=== PATIENT | female | born 1990 | race Caucasian/White ===

== ENCOUNTER 2018-12-13 14:15 | Inpatient (IN) | payer OTHER ==
[2018-12-13] MEDS ORDERED: PROMETHAZINE HCL 25 MG/1 ML VIAL IVPUSH ONE (15:07)
[2018-12-13] MEDS ORDERED: BUTORPHANOL TARTRATE 1 MG/ML VIAL IVPB ONE (15:07)
[2018-12-13] MEDS ORDERED: DINOPROSTONE 10 MG VAGINAL SUPPOSITORY VG ONE (15:10)
[2018-12-13 15:19] VITALS: BMI 32.5
--- NOTE | 2018-12-13 15:45 | HP ---
Past Medical History - Admission History Source: Patient Limitations to Obtaining History: No Limitations - Past Medical History ...: 1 ...Para: 0 ...Term: 0 ...: 0 ...Spon : 0 ...Induced : 0 ...Multiple Gestation: 0 ...EDC by Joseo: 12/06/18 - Smoking History Smoking history: Never smoked Have you smoked in the past 12 months: No - Alcohol/Substance Use Hx Alcohol Use: No Home Medications - Allergies Allergies/Adverse Reactions: Allergies Allergy/AdvReac Type Severity Reaction Status Date / Time No Known Allergies Allergy Verified 12/13/18 15:11 - Home Medications Home Medications: Ambulatory Orders Vits96/Iron Fum/Folic [ Tablet] 1 tab PO DAILY 12/03/18 Review of Systems - Review of Systems Constitutional: reports: No Symptoms Eyes: reports: No Symptoms HENT: reports: No Symptoms Neck: reports: No Symptoms Cardiovascular: reports: No Symptoms Respiratory: reports: No Symptoms Gastrointestinal: reports: No Symptoms Genitourinary: reports: No Symptoms Breasts: reports: No Symptoms Reported Musculoskeletal: reports: No Symptoms Integumentary: reports: No Symptoms Neurological: reports: No Symptoms Endocrine: reports: No Symptoms Hematology/Lymphatic: reports: No Symptoms Psychiatric: reports: No Symptoms Physical Exam - Maternity Vital Signs: Vital Signs Temperature 98.1 F 12/13/18 15:15 Pulse Rate 103 H 12/13/18 15:15 Respiratory Rate 20 12/13/18 15:15 Blood Pressure 111/69 12/13/18 15:15 O2 Sat by Pulse Oximetry (%) Constitutional: Yes: Well Nourished, No Distress Neck: Yes: WNL Cardiovascular: Yes: WNL Breast(s): Yes: WNL - Abdominal Exam/OB Fundal Height: 41 Number of Fetuses: Single Presentation: Vertex Contractions: No Category: I - Vaginal Exam/OB Amniotic Membrane Status: Intact - Physical Exam Musculoskeletal: Yes: WNL Extremities: Yes: WNL Integumentary: Yes: WNL Psychiatric: Yes: WNL, Alert, Oriented Hemorrhage Risk Assessment - Risk Factors Risk Score: 0 Risk Level: Low Risk Problem List - Problems (1) Post term Code(s): O48.0 - POST-TERM Qualifiers: Post-term type: 40-42 weeks gestation Qualified Code(s): O48.0 - Post-term Assessment/Plan post term 41 week plan Cervidil
[2018-12-13] MEDS: DEXTROSE 5%-LACTATED RINGERS 1,000 ML IV SCH ×2 (15:49→21:52)
--- NOTE | 2018-12-13 16:21 | PN ---
Progress Note (short form) - Note Progress Note: 12/13/18 at 16.10 hr 28 yrs , edc 12/06/18 cervidil inserted in vagina , as per Dr Lima's order. cx close, post, unefface, Mi Vx -3/-4 fhr 145 cat-1 irregular mild uc pt unaware Selected Entries 12/13/18 15:15 Temperature 98.1 F Pulse Rate 103 H Blood Pressure 111/69
[2018-12-13 16:31] LABS: BASO % 0.1 % (0-2.0); EOS % 0.5 % (0-4.5); HEMATOCRIT 37.8 % (32.4-45.2); HEMOGLOBIN 13.2 GM/dL (10.7-15.3); LYMPH % 36.2 % (8-40); MCH 30.1 pg (25.7-33.7); MEAN PLT VOLUME 8.4 fl (7.5-11.1); MONO % 6.9 % (3.8-10.2); NEUT % 56.3 % (42.8-82.8); PLATELET COUNT 272 K/MM3 (134-434); RBC 4.39 M/mm3 (3.60-5.2); RDW 13.9 % (11.6-15.6); WHITE BLOOD COUNT 5.8 K/mm3 (4.0-10.0)
[2018-12-13 16:42] LABS: INR 0.96 (0.83-1.09); PROTHROMBIN TIME (PATIENT) 11.3 SEC (9.7-13.0)
[2018-12-13 16:45] LABS: ACTIVATED PTT 25.4 SECONDS (25.2-36.5)
[2018-12-13 16:50] LABS: ANION GAP 7 MMOL/L (8-16); BLOOD UREA NITROGEN 5 mg/dL (7-18); CALCIUM 8.6 mg/dL (8.5-10.1); CHLORIDE 106 mmol/L (98-107); CO2 23 mmol/L (21-32); CREATININE 0.6 mg/dL (0.55-1.3); GLUCOSE,RANDOM 128 mg/dL (74-106); SODIUM 136 mmol/L (136-145)
[2018-12-14] MEDS: DEXTROSE 5%-LACTATED RINGERS 1,000 ML IV SCH (05:44)
[2018-12-14] MEDS ORDERED: ELECTROLYTE-148 SOLN 500 ML IV ONE (08:30)
[2018-12-14] MEDS ORDERED: CITRIC ACID/SODIUM CITRATE 30 ML UNIT-DOSE CUP PO ONE (08:30)
--- NOTE | 2018-12-14 08:35 | PN ---
Ante-Partal Exam - Subjective Subjective: Pt desires CS does not want another cervidil Vital Signs: Vital Signs Temperature 98.1 F 12/14/18 08:00 Pulse Rate 89 12/14/18 08:00 Respiratory Rate 18 12/14/18 08:00 Blood Pressure 112/77 12/14/18 08:00 O2 Sat by Pulse Oximetry (%) Bleeding: No Right upper quadrant pain: Yes - Contractions Contractions: Yes Regularity: Regular Intensity: Mild/Mod Monitor Mode: External - Exam during Labor Heart Rate: 130 Variability: Moderate Category: I Monitor Accelerations: Present Monitor Decelerations: None Exam: Vaginal Dilatation (cm): closed Effacement (%): long Amniotic Membrane Status: Intact Presentation: Vertex - Intrapartum Hemorrhage Risk Risk Score: 0 Risk Level: Low Risk - Assessment/Plan Assessment/Plan: failed induction Inadequate pelvis desires CS IUP at 41.1 week Cat 1 Plan Primary Section
[2018-12-14] MEDS: ELECTROLYTE-148 SOLN 1,000 ML IV SCH (09:00)
[2018-12-14] MEDS ORDERED: morphine SULFATE/Preservative Free 0.5 MG/ML (1cc Syringe) ONE (09:07)
[2018-12-14] MEDS ORDERED: PROPOFOL 20 ML ONE (09:08)
[2018-12-14] MEDS ORDERED: ePHEDrine SULFATE 50 MG/1 ML AMPULE ONE (09:08)
[2018-12-14] MEDS ORDERED: SUCCINYLCHOLINE CHLORIDE 200 MG/10 ML VIAL ONE (09:08)
[2018-12-14] MEDS ORDERED: METHYLERGONOVINE MALEATE 0.2 MG/1 ML AMP IM PRN (09:15)
[2018-12-14] MEDS ORDERED: morphine SULFATE/Preservative Free 0.5 MG/ML (1cc Syringe) EP ONE (09:30)
[2018-12-14] MEDS ORDERED: OXYTOCIN 10 UNITS/ML VIAL ONE (09:53)
--- NOTE | 2018-12-14 10:08 | OP ---
Operative Note - Note: Operative Date: 12/14/18 Pre-Operative Diagnosis: elective , 41.1 weeks gestation Operation: primary low transverse delivery Findings: normal b/l tubes/ovaries live female Post-Operative Diagnosis: Same as Pre-op Surgeon: Lee Ann Moffett Elementary Education Teacher: Howard Alonso Anesthesiologist/CONTINUOUS MINING MACHINE LODE MINER: Eda Maravilla MD Anesthesia: Spinal Specimens Removed: placenta Estimated Blood Loss (mls): 700 Operative Report Dictated: Yes
--- NOTE | 2018-12-14 10:22 | SURG ---
Surgery Direct Mail Coordinator Note Direct Mail Coordinator: Howard Alonso PA-C Date of Service: 12/14/18 Diagnosis: elective Procedure: I was present for the entirety of the operative procedure. For further detail, please refer to operative report.
[2018-12-14] MEDS: PRENATAL VITAMINS W/ FOLIC ACID TABLET (FP) PO SCH (11:30)
[2018-12-14] MEDS ORDERED: ONDANSETRON 4 MG/2 ML VIAL IVPUSH PRN (12:27)
[2018-12-14] MEDS ORDERED: IBUPROFEN 800 MG/8 ML IJ IVPB PRN (12:29)
--- NOTE | 2018-12-14 13:39 | OP ---
DATE OF OPERATION: 12/14/2018 PREOPERATIVE DIAGNOSIS: Single intrauterine at 41.1 weeks gestation, elective section. POSTOPERATIVE DIAGNOSIS: Single intrauterine at 41.1 weeks gestation, elective section. PROCEDURE: Primary low transverse section. SURGEON: Lee Ann Moffett MD ANESTHESIA: Spinal. ANESTHESIOLOGIST: Eda Maravilla MD MANAGING JEWELER: MAURICIO Kunz ESTIMATED BLOOD LOSS: 700 mL. COMPLICATIONS: None. FINDINGS: Normal bilateral tubes and ovaries and live female . COUNTS: Sponge, needle, and instrument counts correct. DISPOSITION: Stable to PACU. BRIEF HISTORY AND PROCEDURE: Patient is a 28-year-old female with a single intrauterine at 41.1 weeks gestation. The patient was admitted to the hospital on December 13, 2018, for an induction of labor for late term, and Cervidil was placed overnight on December 13, 2018. On the morning of December 14, 2018, no change had been noted after the Cervidil medication. The patient at this point expressed the desire to undergo an elective section. The patient was counseled on her options and consents for the procedure were signed. She was then taken back to the operating room where she was given spinal anesthesia and placed in a dorsal supine position. A Aparicio catheter was placed under sterile conditions. She was prepped and draped in the usual sterile fashion, and a hard time-out was performed. A Pfannenstiel skin incision was created in the skin with the scalpel and carried to the underlying layer of rectus fascia sharply. The fascia was incised on either side of the midline with the Bovie, and the fascial incision was carried in the superior lateral direction sharply. The fascia was tented upward and dissected off the underlying layer of rectus muscle sharply. The musculature was identified in the midline, laterally, and the peritoneum was entered bluntly to allow for adequate room for delivery. The bladder blade was inserted, and a transverse incision on the low uterine segment was completed, and the incision was extended in a superior lateral direction bluntly. The infant was then delivered without difficulty from the right occiput transverse position. Anterior and posterior shoulders were delivered with ease along with the remainder of the . The cord was clamped twice and cut in between. was taken over to the warmer to be assessed by the neonatology staff, who were present for the entire delivery. Placenta was then delivered intact. It was manually extracted from the uterus, and a 3-vessel cord was noted. The uterus was exteriorized, inspected, and cleared of all amniotic membranes and debris with a dry lap sponge. The hysterotomy was reapproximated using 1 Vicryl in a running locked fashion, and the 2nd layer using 0 Biosyn in a running locked fashion. Excellent hemostasis was achieved. Bilateral tubes and ovaries were inspected and noted to be normal. The posterior cul-de-sac was suctioned. The uterus was placed back in the abdomen. Bilateral gutters were inspected and cleared of all clot and debris with a dry lap sponge. The hysterotomy was again examined and noted to be hemostatic. The peritoneum was reapproximated in a running fashion using 2-0 chromic suture. The musculature was reapproximated in 2 interrupted sutures using 0 Biosyn. The fascia was reapproximated using 1 Vicryl in a running fashion. The subcutaneous tissue was irrigated and reapproximated using 1 Vicryl in a running fashion. The skin was reapproximated in a subcuticular fashion using 3-0 Vicryl, and Steri-Strips were applied. Patient tolerated the procedure well and was recovering in stable condition in the PACU at the time of this dictation. LEE ANN MOFFETT DO /[id number]
[2018-12-14] MEDS: ACETAMINOPHEN 325 MG TABLET (FP) PO PRN (16:27)
[2018-12-15 07:35] LABS: BASO % 0.2 % (0-2.0); EOS % 0.5 % (0-4.5); HEMATOCRIT 34.2 % (32.4-45.2); HEMOGLOBIN 11.8 GM/dL (10.7-15.3); LYMPH % 16.9 % (8-40); MCH 29.6 pg (25.7-33.7); MCHC 34.4 g/dl (32.0-36.0); MEAN CELL VOLUME 86.1 fl (80-96); MONO % 6.7 % (3.8-10.2); NEUT % 75.7 % (42.8-82.8); PLATELET COUNT 243 K/MM3 (134-434); RBC 3.97 M/mm3 (3.60-5.2); RDW 13.9 % (11.6-15.6)
[2018-12-15] MEDS: oxyCODONE HCL 5 MG TABLET PO PRN ×3 (09:36→23:29)
[2018-12-15] MEDS: ACETAMINOPHEN 325 MG TABLET (FP) PO PRN ×3 (09:37→23:30)
[2018-12-15] MEDS: SIMETHICONE 80 MG TAB.CHEW (FP) PO PRN ×3 (09:38→23:31)
[2018-12-15] MEDS: PRENATAL VITAMINS W/ FOLIC ACID TABLET (FP) PO SCH (09:40)
--- NOTE | 2018-12-15 11:34 | PN ---
Post Note - Post Date of Delivery: 12/14/18 Post Day: 1 Vital Signs: Vital Signs - 24 hr 12/14/18 12/14/18 12/14/18 11:40 12:00 13:00 Temperature 97.8 F Pulse Rate 69 Respiratory 18 18 18 Rate Blood Pressure 113/66 12/14/18 12/14/18 12/14/18 14:00 15:00 16:00 Temperature 98.7 F Pulse Rate 91 H Respiratory 18 18 18 Rate Blood Pressure 125/53 L 12/14/18 12/14/18 12/14/18 17:00 18:00 19:00 Temperature Pulse Rate Respiratory 18 18 20 Rate Blood Pressure 12/14/18 12/14/18 12/14/18 20:00 21:00 22:00 Temperature 97.8 F Pulse Rate 96 H Respiratory 20 20 20 Rate Blood Pressure 111/83 12/14/18 12/15/18 12/15/18 23:00 00:00 01:00 Temperature 97.8 F Pulse Rate 75 Respiratory 20 20 20 Rate Blood Pressure 90/60 12/15/18 12/15/18 12/15/18 02:00 03:00 04:00 Temperature 97.8 F Pulse Rate 75 Respiratory 20 20 20 Rate Blood Pressure 91/60 12/15/18 12/15/18 12/15/18 05:00 06:00 07:00 Temperature Pulse Rate Respiratory 20 20 20 Rate Blood Pressure 12/15/18 12/15/18 08:00 09:00 Temperature 98.4 F Pulse Rate 92 H Respiratory 20 20 Rate Blood Pressure 114/74 Labs: Laboratory Results - last 24 hr 12/15/18 06:07 WBC 10.0 RBC 3.97 Hgb 11.8 Hct 34.2 MCV 86.1 MCH 29.6 MCHC 34.4 RDW 13.9 Plt Count 243 MPV 8.0 Absolute Neuts (auto) 7.6 Neutrophils % 75.7 D Lymphocytes % 16.9 D Monocytes % 6.7 Eosinophils % 0.5 Basophils % 0.2 Nucleated RBC % 0 - Subjective Subjective: No Complaints - Objective Afebrile: Yes Breast: Not engorged Abdomen: Soft, Non-tender, Other (intact no drainage) Uterus: Fundus firm Vagina: Scant lochia Extremities: Non-tender - Assessment/Plan (1) Post term Assessment: Other ( section POD 1) Plan: Routine Care
[2018-12-15] MEDS: BISACODYL 10 MG SUPP.RECT RC PRN (16:43)
[2018-12-15] MEDS: IBUPROFEN 600 MG TABLET (FP) PO PRN ×2 (20:16→23:30)
[2018-12-15] MEDS: ELECTROLYTE-148 SOLN 1,000 ML IV SCH (23:21)
[2018-12-15] MEDS: DEXTROSE 5%-LACTATED RINGERS 1,000 ML IV SCH (23:21)
--- NOTE | 2018-12-16 09:09 | PN ---
Post Progress Note - Subjective Subjective: seen/evaluated and doing well. pt in chair eating breakfast upon my arrival. No complaints Type of Delivery: Primary C/S Vital Signs: Vital Signs Temperature 98.5 F 12/15/18 22:00 Pulse Rate 105 H 12/15/18 22:00 Respiratory Rate 18 12/15/18 22:00 Blood Pressure 106/62 12/15/18 22:00 O2 Sat by Pulse Oximetry (%) 100 12/14/18 11:30 Uterus: Yes: Fundus Firm Incision: Yes: Dressing dry and intact Abdomen/GI: Yes: Abdomen soft Lochia: Yes: Rubra Lochia, amount: Small Extremities: No: Calf tenderness Perineum: Yes: Intact Activity: Ambulating - Labs Labs: CBC WBC 10.0 K/mm3 (4.0-10.0) 12/15/18 06:07 RBC 3.97 M/mm3 (3.60-5.2) 12/15/18 06:07 Hgb 11.8 GM/dL (10.7-15.3) 12/15/18 06:07 Hct 34.2 % (32.4-45.2) 12/15/18 06:07 MCV 86.1 fl (80-96) 12/15/18 06:07 MCH 29.6 pg (25.7-33.7) 12/15/18 06:07 MCHC 34.4 g/dl (32.0-36.0) 12/15/18 06:07 RDW 13.9 % (11.6-15.6) 12/15/18 06:07 Plt Count 243 K/MM3 (134-434) 12/15/18 06:07 MPV 8.0 fl (7.5-11.1) 12/15/18 06:07 Absolute Neuts (auto) 7.6 K/mm3 (1.5-8.0) 12/15/18 06:07 Neutrophils % 75.7 % (42.8-82.8) D 12/15/18 06:07 Lymphocytes % 16.9 % (8-40) D 12/15/18 06:07 Monocytes % 6.7 % (3.8-10.2) 12/15/18 06:07 Eosinophils % 0.5 % (0-4.5) 12/15/18 06:07 Basophils % 0.2 % (0-2.0) 12/15/18 06:07 Nucleated RBC % 0 % (0-0) 12/15/18 06:07 Problem List - Problems (1) delivery delivered Code(s): O82 - ENCOUNTER FOR DELIVERY WITHOUT INDICATION Assessment/Plan regular diet ambulation PO pain meds routine care d/c home in a.m. if stable
[2018-12-16] MEDS: PRENATAL VITAMINS W/ FOLIC ACID TABLET (FP) PO SCH (10:49)
[2018-12-16] MEDS: ACETAMINOPHEN 325 MG TABLET (FP) PO PRN ×3 (12:03→21:03)
[2018-12-16] MEDS: oxyCODONE HCL 5 MG TABLET PO PRN ×3 (12:03→21:04)
[2018-12-16] MEDS: SIMETHICONE 80 MG TAB.CHEW (FP) PO PRN ×2 (18:16→21:05)
[2018-12-16] MEDS: IBUPROFEN 600 MG TABLET (FP) PO PRN (21:04)
--- NOTE | 2018-12-17 06:59 | DS ---
Physical Exam-COMMUNITY AFFAIRS MANAGER Vital Signs: Vital Signs Temperature 98.0 F 12/16/18 22:00 Pulse Rate 83 12/16/18 22:00 Respiratory Rate 18 12/16/18 22:00 Blood Pressure 110/74 12/16/18 22:00 O2 Sat by Pulse Oximetry (%) 100 12/14/18 11:30 Labs: CBC, BMP 12/15/18 06:07 12/13/18 14:30 Delivery - Delivery Type of Anesthesia: Spinal Episiotomy/Laceration: None EBL (cc): 700 Delivery, Single - Stages of Labor Date of Delivery: 12/14/18 Time of Delivery: 09:37 Time Placenta Delivered: 09:38 - Condition of Infant Motorcycle Maker/Microfilm Operator Present: Yes Name: Arleen Grover Infant Gender: Female Weight: 8 lb 12 oz Position: Left, OT Total Hours ROM (Hrs/Mins): 0hrs 2min - 1 Minute Total Score: 9 5 Minutes Total Score: 9 - [place] Feeding Plan Initial Plan: Exclusive throughout hospitalization Discharge Summary Reason For Visit: LABOR INDUCTION Current Active Problems delivery delivered (Acute) Post term (Acute) Condition: Good - Instructions Diet, Activity, Other Instructions: Physical activity Resume your normal everyday activity as tolerated no heavy lifting or exercise until seen by your surgeon. You may walk unlimited diana of and climb stairs. You may resume driving the car when you feel safe and comfortable behind the wheel. No sexual activity as instructed. Wound care If you have a bandage, leave it on, and keep dry for 48-72 hours. After that time discard the outer bandage. If they are tapes on the skin under the out of bandage leave them in place. They will peel off in the next 7 to 10 days. Do Not Peel them off. You may shower the day after surgery. If there are tapes present on the skin, you may shower over them. Diet There are no dietary restrictions. Eat healthy, high-fiber foods. Drink 6 to 8 glasses of liquid each day. This will assist in keeping your bowels are regular. Pain management You may take Tylenol or acetaminophen or Ibuprofen (for example, Motrin, Advil etc.) from my pain prescription medication is ordered should be taken as prescribed for moderate to severe pain. Call MD for any of the following: Severe pain not relieved by medication Fever of 101 or higher Excessive bleeding or drainage on dressing Inability to urinate Referrals: Delphine Rajput PA [Non Staff, Medical] - 1 Week Disposition: HOME - Home Medications Comprehensive Discharge Medication List: Ambulatory Orders Vits96/Iron Fum/Folic [ Tablet] 1 tab PO DAILY 12/03/18 Ibuprofen [Motrin -] 600 mg PO QID PRN #28 tablet 12/17/18
[2018-12-17 07:28] LABS: BASO % 0.1 % (0-2.0); EOS % 1.8 % (0-4.5); HEMATOCRIT 31.5 % (32.4-45.2); HEMOGLOBIN 11.1 GM/dL (10.7-15.3); LYMPH % 39.9 % (8-40); MCH 30.2 pg (25.7-33.7); MCHC 35.1 g/dl (32.0-36.0); MEAN PLT VOLUME 7.6 fl (7.5-11.1); MONO % 6.6 % (3.8-10.2); NEUT % 51.6 % (42.8-82.8); PLATELET COUNT 293 K/MM3 (134-434); RBC 3.67 M/mm3 (3.60-5.2); WHITE BLOOD COUNT 7.8 K/mm3 (4.0-10.0)
[2018-12-17] MEDS: ACETAMINOPHEN 325 MG TABLET (FP) PO PRN (08:19)
[2018-12-17] MEDS: IBUPROFEN 600 MG TABLET (FP) PO PRN (08:19)
[2018-12-17] MEDS: SIMETHICONE 80 MG TAB.CHEW (FP) PO PRN (08:20)
[2018-12-17] MEDS: oxyCODONE HCL 5 MG TABLET PO PRN (08:20)
[2018-12-17 09:02] VITALS: BP 119/57; PULSE 95; TEMP 97.7
[2018-12-17] MEDS: BISACODYL 10 MG SUPP.RECT RC PRN (09:27)
[2018-12-17] MEDS: PRENATAL VITAMINS W/ FOLIC ACID TABLET (FP) PO SCH (09:27)
--- NOTE | 2018-12-21 15:45 | PATH ---
Surgical Pathology Report Patient Name: ASAF ÁLVAREZ Med. Rec. #: [id number] /Age/Gender: 1990 (Age: 28) / F Account: [id number] Location: [facility] OBS/DEBURRER MACHINE Taken: 12/14/2018 Received: 12/14/2018 Reported: 12/21/2018 Physicians: Abraham Blanc M.D. Specimen(s) Received PLACENTA Clinical History , primary Final Diagnosis PLACENTA, SECTION: 446 G THIRD TRIMESTER PLACENTA WITH TRIVASCULAR UMBILICAL CORD AND UNREMARKABLE PLACENTAL MEMBRANES. Electronically Signed Linh Ann M.D. Gross Description The specimen is received fresh labeled placenta and is a 446 gram, 16.5 x 14.0 x 2.8 cm. placenta with attached membranes and umbilical cord. The attached membranes are gunderson, translucent with focal opacities and insert marginally. The umbilical cord measures 36 cm. in length and averages 1 cm. in diameter. The cord inserts centrally. No true knots or strictures are identified. Cut surface of the umbilical cord reveals 3 vessels. The surface is barlow-blue with minimal fibrin deposition and appropriate caliber vessels. The maternal surface is red-brown with focal defects. Sectioning reveals red-brown, spongy parenchyma. No lesions are identified. Department Store Salesperson sections are submitted in three cassettes as follows: 1- membrane rolls and umbilical cord; 2-3- full thickness sections of placenta. 12/20/[address] [facility]12/20/2018
== END 2018-12-17 11:55 | disposition home or self-care (01) | DRG 540 ==
LOC: JLDR 14:15 → J3W 12-14 11:41
PROVIDERS: ADMIT Obstetrics & Gynecology; ATTEND Obstetrics & Gynecology
PROC: 3E0P7VZ Introduction of Hormone into Female Reproductive, Via Natural or Artificial Opening (ICD-10-PCS; 2018-12-13)
PROC: 10D00Z1 Extraction of Products of Conception, Low, Open Approach (ICD-10-PCS; principal; 2018-12-14)
DX: O48.0 Post-term pregnancy (principal); Z3A.41 41 weeks gestation of pregnancy; O61.0 Failed medical induction of labor; O62.1 Secondary uterine inertia; Z37.0 Single live birth
CPT/HCPCS: 36415; 80048; 85025; 85610; 85730; 86593; 86850; 86900; 86901; 87389; 88307-TC

== ENCOUNTER 2021-03-24 08:00 | Inpatient (IN) | payer OTHER ==
[2021-03-26] MEDS ORDERED: CITRIC ACID/SODIUM CITRATE 30 ML UNIT-DOSE CUP PO ONE (08:58)
[2021-03-26] MEDS ORDERED: ELECTROLYTE-148 SOLN 1,000 ML IV SCH ×2 (09:00)
[2021-03-26] MEDS ORDERED: METHYLERGONOVINE MALEATE 0.2 MG/1 ML AMP IM PRN (09:08)
[2021-03-26] MEDS ORDERED: WITCH HAZEL 50% (TUCKS) 40 PAD/JAR PAD TP PRN (09:08)
[2021-03-26] MEDS ORDERED: IBUPROFEN 800 MG/8 ML IJ IVPB PRN (09:08)
[2021-03-26] MEDS ORDERED: OXYTOCIN 20 UNITS in 0.9% NS 20 UNIT/1,000 ML INFUS.BAG IV SCH (09:15)
[2021-03-26] MEDS ORDERED: OXYTOCIN 20 UNITS in 0.9% NS 20 UNIT/1,000 ML INFUS.BAG IV ONE ×2 (09:47→10:32)
[2021-03-26] MEDS ORDERED: morphine SULFATE/PF 0.5 MG/ML (2cc Syringe - QUVA) ONE (09:48)
[2021-03-26] MEDS ORDERED: ceFAZolin SODIUM 1 GM VIAL ONE (09:48)
[2021-03-26] MEDS ORDERED: SODIUM CHLORIDE 0.9% P/F 10 ML VIAL IJ ONE (09:48)
[2021-03-26] MEDS ORDERED: PHENYLEPHRINE HCL 10 MG/1 ML SINGLE DOSE VIAL ONE (09:49)
[2021-03-26] MEDS ORDERED: SUCCINYLCHOLINE CHLORIDE 200 MG/10 ML SYRINGE ONE (09:51)
[2021-03-26] MEDS ORDERED: ePHEDrine SULFATE 50 MG/1 ML AMPULE ONE (09:51)
[2021-03-26] MEDS ORDERED: PROPOFOL 20 ML ONE (09:51)
[2021-03-26 10:20] VITALS: BMI 33.2
[2021-03-26] MEDS ORDERED: OXYTOCIN 10 UNITS/ML VIAL ONE (11:15)
[2021-03-26] MEDS ORDERED: KETOROLAC TROMETHAMINE 30 MG/1 ML VIAL ONE (11:32)
[2021-03-26] MEDS ORDERED: ONDANSETRON 4 MG/2 ML VIAL ONE (11:32)
[2021-03-26] MEDS ORDERED: ONDANSETRON 4 MG/2 ML VIAL IVPUSH PRN (12:07)
[2021-03-26] MEDS ORDERED: IBUPROFEN 600 MG TABLET (FP) PO PRN (12:07)
[2021-03-26] MEDS ORDERED: morphine SULFATE/PF 0.5 MG/ML (2cc Syringe - QUVA) EP ONE (12:07)
[2021-03-26] MEDS ORDERED: ACETAMINOPHEN 325 MG TABLET (FP) PO PRN (12:07)
[2021-03-27] MEDS ORDERED: oxyCODONE HCL 5 MG TABLET PO PRN ×2 (09:08)
[2021-03-27] MEDS ORDERED: BISACODYL 10 MG SUPP.RECT RC PRN (09:10)
[2021-03-27 09:27] LABS: BASO % 0.3 % (0-2.0); EOS % 1.6 % (0-4.5); HEMATOCRIT 33.4 % (32.4-45.2); HEMOGLOBIN 11.3 GM/dL (10.7-15.3); LYMPH % 26.6 % (8-40); MCH 28.8 pg (25.7-33.7); MCHC 33.7 g/dl (32.0-36.0); MEAN CELL VOLUME 85.4 fl (80-96); MEAN PLT VOLUME 7.6 fl (7.5-11.1); MONO % 7.8 % (3.8-10.2); NEUT % 63.7 % (42.8-82.8); PLATELET COUNT 269 K/MM3 (134-434); RBC 3.91 M/mm3 (3.60-5.2); RDW 14.5 % (11.6-15.6)
[2021-03-27] MEDS: SIMETHICONE 80 MG TAB.CHEW (FP) PO PRN ×2 (09:36→18:33)
[2021-03-27] MEDS: ACETAMINOPHEN 325 MG TABLET (FP) PO PRN ×2 (09:36→18:32)
[2021-03-27] MEDS: PRENATAL VITAMINS W/ FOLIC ACID TABLET (FP) PO SCH (09:36)
[2021-03-27] MEDS: IBUPROFEN 600 MG TABLET (FP) PO PRN ×2 (09:37→18:33)
[2021-03-27] MEDS: FERROUS SO4 325 MG TABLET (FP) PO SCH (21:47)
[2021-03-28] MEDS: FERROUS SO4 325 MG TABLET (FP) PO SCH ×2 (09:41→21:37)
[2021-03-28] MEDS: PRENATAL VITAMINS W/ FOLIC ACID TABLET (FP) PO SCH (09:41)
[2021-03-28] MEDS: IBUPROFEN 600 MG TABLET (FP) PO PRN (11:48)
[2021-03-28] MEDS: ACETAMINOPHEN 325 MG TABLET (FP) PO PRN ×2 (11:48→21:37)
[2021-03-28] MEDS: SIMETHICONE 80 MG TAB.CHEW (FP) PO PRN (11:49)
[2021-03-29 08:14] LABS: BASO % 0.2 % (0-2.0); EOS % 1.9 % (0-4.5); HEMATOCRIT 35.9 % (32.4-45.2); HEMOGLOBIN 12.6 GM/dL (10.7-15.3); LYMPH % 40.5 % (8-40); MCH 29.4 pg (25.7-33.7); MCHC 35.1 g/dl (32.0-36.0); MEAN CELL VOLUME 83.8 fl (80-96); MEAN PLT VOLUME 7.4 fl (7.5-11.1); MONO % 6.6 % (3.8-10.2); NEUT % 50.8 % (42.8-82.8); PLATELET COUNT 324 K/MM3 (134-434); RBC 4.28 M/mm3 (3.60-5.2); RDW 14.3 % (11.6-15.6); WHITE BLOOD COUNT 6.8 K/mm3 (4.0-10.0)
[2021-03-29] MEDS: FERROUS SO4 325 MG TABLET (FP) PO SCH (09:09)
[2021-03-29] MEDS: SIMETHICONE 80 MG TAB.CHEW (FP) PO PRN (09:09)
[2021-03-29] MEDS: PRENATAL VITAMINS W/ FOLIC ACID TABLET (FP) PO SCH (09:09)
[2021-03-29] MEDS: ACETAMINOPHEN 325 MG TABLET (FP) PO PRN (09:10)
[2021-03-29] MEDS: IBUPROFEN 600 MG TABLET (FP) PO PRN (09:12)
[2021-03-29 12:23] VITALS: BP 100/68; PULSE 72; TEMP 98.6
== END 2021-03-29 12:50 | disposition home or self-care (01) | DRG 560 ==
LOC: JLDR 09:39 → UNDOADMIN 09:39 → JLDR 03-26 08:00 → J3W 03-26 14:00
PROVIDERS: ADMIT Obstetrics & Gynecology; ATTEND Obstetrics & Gynecology
DX: O34.219 Maternal care for unspecified type scar from previous cesarean delivery (principal); Z3A.39 39 weeks gestation of pregnancy; Z37.0 Single live birth
CPT/HCPCS: 36415; 85025; 88307-TC